=== PATIENT | female | born 1970 | race Caucasian/White ===

== ENCOUNTER → 2021-05-09 | Outpatient (CLI) | payer OTHER ==
--- NOTE | 2021-05-09 17:36 | RAD ---
XR EXAM OF ANKLE_RIGHT 2 VIEWS History: Reason: LATERAL RIGHT ANKLE PAIN AND CALC PAIN / Spl. Instructions: / History: Technique: 2 views right ankle. Comparison: None. Findings: Symmetric ankle mortise. No acute fracture. Mild ankle degenerative changes. Plantar calcaneal spur. Prominence of the anterior talus, can be seen with anterior ankle impingement morphology. Impression: 1. Mild ankle DJD. 2. Plantar calcaneal spur. Electronically signed by: Alvarez Mason DO (05/09/2021 5:34 PM) [id number]
== END ==
LOC: DXRAD 16:10
PROVIDERS: ATTEND Family Medicine
DX: M19.071 Primary osteoarthritis, right ankle and foot (principal); M77.31 Calcaneal spur, right foot; Z68.41 Body mass index [BMI] 40.0-44.9, adult
CPT/HCPCS: 73600